=== PATIENT | male | born 1980 | race Caucasian/White ===

== ENCOUNTER 2021-12-02 15:16 | Emergency (ER) | payer OTHER, SELFPAY ==
[2021-12-02 15:32] VITALS: BP 125/99; PULSE 119; RESP 18; TEMP 36.6; O2SAT 98
--- NOTE | 2021-12-02 16:17 | ED.PSYCH ---
HPI - Psych General Chief Complaint: Psychiatric Symptoms Stated Complaint: med refill Time Seen by Provider: 12/02/21 16:16 History of Present Illness HPI Narrative: Patient presents the emergency room via EMS for refill of psychiatric medications. Patient states that he has not taken any of his medications for 3 days. Denies HI or SI. No other complaints at this time. Related Data Allergies Allergy/AdvReac Type Severity Reaction Status Date / Time No Known Allergies Allergy Unverified 12/03/16 12:31 Review of Systems Review of Systems: CONSTITUTIONAL: Denies fever, chills, or sweats. EYES: Denies visual changes, redness, or discharge. ENT: Denies rhinorrhea, congestion, sore throat, or otalgia. CARDIOVASCULAR: Denies chest pain, palpitations, or edema. RESPIRATORY: Denies cough or dyspnea. GASTROINTESTINAL: Denies abdominal pain, nausea, vomiting, or diarrhea. GENITOURINARY: Denies dysuria or hematuria. SKIN: Denies rash or itching. MUSCULOSKELETAL: Denies back pain, joint pain, or myalgia. NEUROLOGIC: Denies headache, numbness, dizziness, or weakness. PSYCHIATRIC: Denies anxiety or depression. Exam Narrative: GENERAL: Well-appearing, well-nourished, and in no acute distress. HEAD: Normocephalic, atraumatic. EYES: PERRLA and EOMI. ENT: Nares clear, no rhinorrhea or epistaxis. Mucous membranes moist. CHEST: Clear to auscultation. No respiratory distress. No wheezes rales or rhonchi HEART: Regular rate and rhythm. No murmur heard. Normal peripheral pulses. ABDOMEN: Soft, nontender, nondistended, normal active bowel sounds. EXTREMITIES: Normal range of motion. No edema. SKIN: Warm, dry, no rash. NEURO: No focal deficits. Alert and oriented x3. PSYCH: Normal mood and affect. Making delusional statements Course Vital Signs Vital signs: Vital Signs Temperature 36.6 C 12/02/21 15:32 Pulse Rate 119 H 12/02/21 15:32 Respiratory Rate 18 12/02/21 15:32 Blood Pressure 125/99 H 12/02/21 15:32 Pulse Oximetry 98 12/02/21 15:32 Temperature 36.6 C 12/02/21 15:32 Pulse Rate 119 H 12/02/21 15:32 Respiratory Rate 18 12/02/21 15:32 Blood Pressure 125/99 H 12/02/21 15:32 Pulse Oximetry 98 12/02/21 15:32 Discharge Plan Discharge Clinical Impression: Medication refill Psychosis Qualifiers: Psychosis type: unspecified psychosis type Qualified Code(s): F29 - Unspecified psychosis not due to a substance or known physiological condition Patient Disposition: Home, Self-Care Condition: Stable Instructions: Antibiotic Form Prescriptions: New bupropion HCl 150 mg tablet sustained-release 12 hr 150 mg PO BID Qty: 30 RF: 0 benztropine 2 mg tablet 2 mg PO BID Qty: 30 RF: 0 haloperidol 2 mg tablet 2 mg PO BID Qty: 30 RF: 0 Follow-up/Referrals: PHYSICIAN NOT ON STAFF,NONSTAFF [Primary Care Provider] -
== END 2021-12-02 16:50 | disposition home or self-care (01) ==
LOC: ANHED 16:44
PROVIDERS: Emergency Provider Nurse Practitioner Family
DX: F29 Unspecified psychosis not due to a substance or known physiological condition (principal)
CPT/HCPCS: 99281

== ENCOUNTER 2023-05-23 13:25 | Emergency (ER) | payer OTHER, SELFPAY ==
[2023-05-23 13:37] VITALS: BP 115/82; PULSE 109; RESP 18; TEMP 36.4; O2SAT 98
--- NOTE | 2023-05-23 14:01 | PC.NURSE ---
REPORT TO JOANNA DUBON. ALL QUESTIONS ANSWERED.
--- NOTE | 2023-05-23 14:03 | ECG_ITS ---
Measurements Intervals [place] Rate: 100 P: 23 IA: 163 QRS: -16 QRSD: 94 T: 11 QT: 333 QTc: 430 Interpretive Statements SINUS TACHYCARDIA EARLY PRECORDIAL R/S TRANSITION VOLTAGE CRITERIA FOR LVH BORDERLINE ECG NO PREVIOUS ECG AVAILABLE FOR COMPARISON Electronically Signed On 05-23-2023 16:04:29 CDT by Gualberto Estevez D.O.
--- NOTE | 2023-05-23 14:04 | ED.GENADULT ---
HPI - General Adult General Chief complaint: Anxiety Stated complaint: Shortness of Breath Source: patient and family Mode of arrival: ambulatory Limitations: no limitations History of Present Illness HPI narrative: 42-year-old male presents to [facility] with complaints of intermittent shortness of breath since yesterday. Patient reports he has a history of schizophrenia and receives IM Haldol monthly. Patient reports that he is also taking Haldol p.o. as needed which does help the shortness of breath. Patient reports he has a history of anxiety and has had these symptoms before. Patient denies chest pain, fever, body aches, chills, nausea vomiting or diarrhea. Patient reports that the shortness of breath has been on and off for the past few months. Reports that he was in crisis unit in [place] months ago and was given Vistaril at that time which did help his anxiety. Onset (ago): day(s) (2) Related Data Allergies Allergy/AdvReac Type Severity Reaction Status Date / Time No Known Allergies Allergy Unverified 12/03/16 12:31 Review of Systems Constitutional: Constitutional: Denies chills, Denies fatigue, Denies fever(s) and Denies weakness ENT: Denies dizziness, Denies epistaxis and Denies nasal congestion Cardiovascular: Cardiovascular: Denies chest pain Respiratory: Respiratory: Denies cough, Reports dyspnea and Denies wheezing Gastrointestinal: Gastrointestinal: Denies diarrhea, Denies nausea and Denies vomiting Musculoskeletal: Musculoskeletal: Denies arthralgias and Denies joint swelling Integumentary/Breasts: Skin/Breast: Denies rash Neurologic: Denies dizziness, Denies syncope and Denies headache(s) Allergic/Immunologic: Allergic/Immunologic: Denies lip swelling, Denies throat swelling, Denies tongue swelling and Denies wheezing PMFSH Comments At time of signature, I agree with nursing past medical, surgical, social and family history. There is no relevant family history pertinent to the presenting complaint. Exam Const: General: healthy appearing and no acute distress Nutritional Appearance: well nourished Orientation/consciousness: patient oriented x3 HENMT: Head: normal to inspection Throat: posterior oropharynx normal and uvula midline Eyes: Conjunctivae: conjunctivae normal Neck: Neck: normal visual inspection Chest: Chest palpation & inspection: normal inspection of the chest Resp: Effort & Inspection: normal respiratory effort and not labored Auscultation: clear to auscultation bilaterally, no crackles, no rales, no rhonchi and no wheezes Other: No shortness of breath noted. Patient is speaking in full sentences with no difficulty Cardio: Rate: regular rate Rhythm: regular rhythm Heart sounds: no murmurs Skin: General skin exam: normal color Rashes: no rashes Neuro: General: patient oriented x3 Speech: normal speech Psych: Affect: normal affect Attitude: cooperative Course Course Level of Care: Express Care Visit Vital Signs Vital signs: Vital Signs Temperature 36.4 C L 05/23/23 13:37 Pulse Rate 109 H 05/23/23 13:37 Respiratory Rate 18 05/23/23 13:37 Blood Pressure 115/82 05/23/23 13:37 Pulse Oximetry 98 05/23/23 13:37 Oxygen Delivery Room Air 05/23/23 13:37 Temperature 36.4 C L 05/23/23 13:37 Pulse Rate 109 H 05/23/23 13:37 Respiratory Rate 18 05/23/23 13:37 Blood Pressure 115/82 05/23/23 13:37 Pulse Oximetry 98 05/23/23 13:37 Oxygen Delivery Room Air 05/23/23 13:37 Medical Decision Making MDM Narrative Medical decision making narrative: Instructed patient to take hydroxyzine as needed. Instructed patient to follow-up with psych provider discussed symptoms. Instructed patient proceed to the emergency room if symptoms worsen Differential Diagnosis Differential Diagnosis: Stress, anxiety, viral illness Vital Signs Vital Signs: Vital Signs Temperature 36.4 C L 05/23/23 13:37 Pulse Rate 109 H 05/23
== END 2023-05-23 14:18 | disposition home or self-care (01) ==
PROVIDERS: Emergency Provider Nurse Practitioner Family; PCP Family Medicine
DX: F41.9 Anxiety disorder, unspecified (principal)
CPT/HCPCS: 93005; 99213; G0463

== ENCOUNTER 2023-08-20 13:57 | Emergency (ER) | payer OTHER, SELFPAY ==
[2023-08-20] VITALS (11 sets, daily range): BP systolic 121–133; BP diastolic 87–94; PULSE 88–94; RESP 17–20; O2SAT 94–99
--- NOTE | ~2023-08-20 | XR_ITS ---
EXAMINATION: XR chest 1V portable DATE: 08/20/2023 15:00 INDICATION: Intermittent heart palpitations TECHNIQUE: frontal view of the chest was obtained. COMPARISON: Chest radiograph dated 03/07/2019 FINDINGS: No focal airspace opacities, pulmonary edema, pleural effusion or pneumothorax. The cardiomediastinal silhouette is normal. Visualized bones and soft tissues are unremarkable. IMPRESSION: 1. No acute cardiopulmonary disease. Reviewed, dictated and finalized at location A. RITY CLERK
--- NOTE | 2023-08-20 14:05 | ECG_ITS ---
Measurements Intervals [place] Rate: 91 P: 32 AR: 166 QRS: -12 QRSD: 94 T: 21 QT: 348 QTc: 428 Interpretive Statements SINUS RHYTHM POSSIBLE RIGHT VENTRICULAR CONDUCTION DELAY [RSR (QR) IN V1/V2] VOLTAGE CRITERIA FOR LVH [MEETS CRITERIA IN ONE OF: R(aVL), S(V1), R(V5), R(V5/V6)+S(V1)] BORDERLINE ECG COMPARED TO ECG 05/23/2023 14:14:47 NO SIGNIFICANT CHANGE Electronically Signed On 08-20-2023 14:18:09 PATIENT SCHEDULING COORDINATOR by Salvador Billings M.D.
--- NOTE | 2023-08-20 14:48 | ED.GENADULT ---
HPI - General Adult General Chief complaint: Unspecified Stated complaint: high heart rate Time Seen by Provider: 08/20/23 14:00 History of Present Illness HPI narrative: 42-year-old male present to the emergency department for evaluation for heart palpitations. Patient states that his heart rate has been persistently elevated with heart rate of 96 whenever he gets that checked at [facility]. Patient denies any current chest pain or shortness of breath. Patient denies any associated nausea vomiting or diarrhea. Patient reports he has been eating and drinking okay. While at rest in the room patient denies any complaints. Patient states that when he exerts himself he does have some associated shortness of breath. Patient does have a history of schizophrenia. Related Data Allergies Allergy/AdvReac Type Severity Reaction Status Date / Time No Known Allergies Allergy Verified 08/20/23 13:58 Review of Systems Review of Systems: All systems reviewed & are unremarkable except as noted in HPI and below Exam Narrative: APPEARANCE: Well appearing, no pain, no distress, well-nourished. HEAD: normocephalic, atraumatic. EYES: PERRLA/EOMI, conjunctivae clear. NOSE: Normal no drainage EARS:TMS clear with good light reflex. THROAT: Pharynx clear, no exudate. NECK: Supple. No adenopathy, no masses. RESPIRATORY: Airway patent, respirations nonlabored. Clear to auscultation bilaterally, no rales, rhonchi, wheezing. CARDIOVASCULAR: Regular rate and rhythm without murmurs rubs or gallops. ABDOMINAL: Soft, nontender, nondistended, normal bowel sounds MUSCULOSKELETAL: Moves all extremities. Strength/ROM intact, No edema, No calf tenderness. NEURO: Alert. Cranial nerves II through XII intact. Grossly intact SKIN: Warm, dry. Normal Color Course Course Emergency Course: 42-year-old male presenting to the emergency department for evaluation of intermittent tachycardia. Patient is afebrile with no leukocytosis and a stable hemoglobin. Patient's chemistries are normal and patient was negative for influenza RSV in for COVID. EKG showed normal sinus rhythm with no tachycardia. Patient was encouraged to decrease his caffeine intake and to increase his water intake. At time of discharge patient was well appearing and had no complaints. Vital Signs Vital signs: Vital Signs Pulse Rate 92 08/20/23 14:00 Respiratory Rate 20 08/20/23 14:00 Blood Pressure 133/94 H 08/20/23 14:00 Pulse Oximetry 97 08/20/23 14:00 Oxygen Delivery Room Air 08/20/23 14:00 Pulse Rate 88 08/20/23 15:31 Respiratory Rate 17 08/20/23 15:31 Blood Pressure 129/91 H 08/20/23 15:31 Pulse Oximetry 99 08/20/23 15:31 Oxygen Delivery Room Air 08/20/23 14:00 Medical Decision Making Vital Signs Vital Signs: Vital Signs Pulse Rate 92 08/20/23 14:00 Respiratory Rate 20 08/20/23 14:00 Blood Pressure 133/94 H 08/20/23 14:00 Pulse Oximetry 97 08/20/23 14:00 Oxygen Delivery Room Air 08/20/23 14:00 Pulse Rate 88 08/20/23 15:31 Respiratory Rate 17 08/20/23 15:31 Blood Pressure 129/91 H 08/20/23 15:31 Pulse Oximetry 99 08/20/23 15:31 Oxygen Delivery Room Air 08/20/23 14:00 Lab Data Lab results reviewed: Yes I reviewed the patient's lab results. 08/20/23 14:52 08/20/23 14:52 Labs: Lab Results 08/20/23 Range/Units 14:52 WBC 7.7 (4.5-10.0) K/mm3 RBC 5.35 (4.6-6.20) M/mm3 Hgb 16.1 (14.0-18.0) g/dL Hct 46.7 (42.0-52.0) % MCV 87.3 (80-100) fl MCH 30.1 (26-34) pg MCHC 34.5 (32-36) g/dl RDW 12.0 (11.5-14.5) % Plt Count 220 (150-375) k/mm3 MPV 10.5 H (7.4-10.4) fl Immature Gran % (Auto) 0.5 (0-0.5) % Neut % (Auto) 65.2 (45.5-73.1) % Lymph % (Auto) 26.2 (18.3-44.2) % [place] % (Auto) 5.5 (2.6-8.5) % Eos % (Auto) 2.1 (0-4.4) % Baso % (Auto) 0.5 (0.2-1.2) % Lymph # (Auto) 2.01 (0.9-3.2) K/mm3 [place] # (Auto) 0.4 (0.
[2023-08-20] MEDS: SODIUM CHLORIDE 0.9% IV 1,000 ML 999 ML IV CONT (14:50)
[2023-08-20 14:57] LABS: Basophils Percent Auto 0.5 % (0.2-1.2); Eosinophils Absolute Auto 0.2 K/mm3 (0-0.3); Eosinophils Percent Auto 2.1 % (0-4.4); Hematocrit 46.7 % (42.0-52.0); Hemoglobin 16.1 g/dL (14.0-18.0); Immature Granulocyte Absolute 0.04 K/mm3 (0.00-0.031); Immature Granulocyte Percent A 0.5 % (0-0.5); Lymphocytes Absolute Auto 2.01 K/mm3 (0.9-3.2); Lymphocytes Percent Auto 26.2 % (18.3-44.2); Mean Corpuscular HGB Conc 34.5 g/dl (32-36); Mean Corpuscular Hemoglobin 30.1 pg (26-34); Mean Corpuscular Volume 87.3 fl (80-100); Mean Platelet Volume 10.5 fl (7.4-10.4); Monocytes Absolute Auto 0.4 K/mm3 (0.1-0.6); Monocytes Percent Auto 5.5 % (2.6-8.5); Neutrophils Percent Auto 65.2 % (45.5-73.1); Platelet Count Result 220 k/mm3 (150-375); Red Blood Count 5.35 M/mm3 (4.6-6.20); White Blood Count 7.7 K/mm3 (4.5-10.0)
[2023-08-20 15:06] LABS: Alanine Aminotransferase 23 U/L (6-50); Albumin Level 4.1 g/dL (3.5-5.1); Alkaline Phosphatase 69 U/L (38-126); Anion Gap 8 mmol/L (8-16); Aspartate Amino Transferase 22 U/L (17-59); Bilirubin,Total 0.7 mg/dL (0.2-1.3); Blood Urea Nitrogen 12 mg/dL (9-20); Calcium 9.4 mg/dL (8.4-10.2); Carbon Dioxide 28 mmol/L (22-30); Chloride 103 mmol/L (98-107); Estimated CRCL calculation 96 ml/min; Estimated Glomerular Filt Rate > 60; Glucose 116 mg/dL (65-110); Magnesium 2.2 mg/dL (1.6-2.3); Potassium 3.5 mmol/L (3.4-5.0); Sodium 139 mmol/L (137-145)
[2023-08-20 15:32] LABS: Influenza A QL RT-PCR Negative (Negative); Influenza B QL RT-PCR Negative (Negative); RSV RNA, RT-PCR Negative (Negative); SARS-CoV-2 RNA PCR Negative (Negative)
== END 2023-08-20 15:51 | disposition home or self-care (01) ==
PROVIDERS: Emergency Provider Emergency Medicine; PCP Family Medicine
DX: R00.2 Palpitations (principal); Z20.822 Contact with and (suspected) exposure to COVID-19
CPT/HCPCS: 36415; 71045; 80053; 83735; 84443; 85025; 87637; 93005; 96360; 99284; J7030